=== PATIENT | male | born 1965 | race Asian ===

== ENCOUNTER → 2019-09-01 | Outpatient (CLI) | payer OTHER ==
--- NOTE | 2019-09-01 09:42 | Diagnostic Imaging Report ---
INDICATION: Right ankle pain and injury. Time of exam: 9:34 AM 3 views of the right ankle were obtained. Alignment is normal. Ankle mortise is well-maintained. The talar dome is smooth. There are small well corticated osseous densities adjacent to the medial malleolus, likely old avulsion fragments. No acute fracture is seen. There is moderate soft tissue swelling about the ankle, particularly laterally. IMPRESSION: Soft tissue swelling. No acute bony abnormality is detected. There appear to be old avulsions of the medial malleolus. Dictated by: Dictated on workstation # [id number]
== END ==
LOC: RAD 09:05
PROVIDERS: ATTEND Internal Medicine
DX: S99.911A Unspecified injury of right ankle, initial encounter (principal)
CPT/HCPCS: 73610